=== PATIENT | male | born 1950 | race African-American/Black ===

== ENCOUNTER 2022-07-04 08:29 | Outpatient (CLI) | payer MEDICARE, SELFPAY ==
--- NOTE | ~2022-07-04 | CT_ITS ---
EXAMINATION: CT abdomen wo/w con DATE: 07/04/2022 08:59 INDICATION: Kidney mass. TECHNIQUE: Computed tomography (CT) of the abdomen was performed without and with 100 mL Omnipaque 35 0 intravenous contrast. Automated exposure control and iterative reconstruction technique were employ ed. The dose-length product was 2260.93 mGy-cm. COMPARISON: None. FINDINGS: The visualized portions of the lung bases demonstrate mild atelectasis and scarring. There is a pneumatocele in right lower lobe. No pleural effusion. There is elevation of right hemidiaphragm . The heart size is normal. There are coronary artery calcifications. No pericardial effusion. The li oliver, gallbladder, spleen, pancreas, and adrenal glands are normal. There are cysts in the kidneys mell suring up to 12.0 cm on the left. There are no dilated loops of bowel. The appendix is normal. There are no pathologically enlarged lymph nodes. There is no free intraperitoneal fluid. There is severe t horacic and lumbar spondylosis. There are bridging endplate osteophytes at multiple levels in the tho racic spine, consistent with diffuse idiopathic skeletal hyperostosis (DISH). IMPRESSION: 1. Benign cysts in the kidneys. Reviewed, dictated and finalized at location A. [facility]
[2022-07-04 08:52] LABS: Estimated Glomerular Filt Rate 52
== END 2022-07-04 08:30 | disposition home or self-care (01) ==
LOC: ANHIMG 08:35
PROVIDERS: PCP Internal Medicine; Visit Provider Urology
DX: N28.89 Other specified disorders of kidney and ureter (principal); N28.1 Cyst of kidney, acquired
CPT/HCPCS: 74170; Q9967

== ENCOUNTER 2024-03-31 08:20 | Outpatient (CLI) | payer MEDICARE, SELFPAY ==
[2024-03-31 09:05] LABS: Anion Gap 7 mmol/L (4-12); Blood Urea Nitrogen 27 mg/dL (9-20); Calcium 9.7 mg/dL (8.4-10.2); Carbon Dioxide 30 mmol/L (22-30); Chloride 104 mmol/L (98-107); Estimated Glomerular Filt Rate 52; Glucose 110 mg/dL (65-110); Potassium 4.2 mmol/L (3.4-5.0); Sodium 141 mmol/L (137-145)
== END 2024-03-31 08:21 | disposition home or self-care (01) ==
LOC: ANHSURGERY 08:24
PROVIDERS: Anesthesiology; PCP Internal Medicine; Visit Provider Urology
DX: Z51.81 Encounter for therapeutic drug level monitoring (principal); R97.20 Elevated prostate specific antigen [PSA]; Z79.899 Other long term (current) drug therapy
CPT/HCPCS: 36415; 80048; 87086

== ENCOUNTER 2024-04-08 01:19 | Day surgery (SDC) | payer MEDICARE, SELFPAY ==
[2024-03-24 13:20] VITALS: BMI 40.8
--- NOTE | 2024-03-24 13:50 | PC.NURSE ---
Report to the Outpatient Waiting Room, entrance under the green pavilion located off [facility], at time ___7:30AM____ on date ___04/08/24____. Planned Procedure Time: ___9:30AM .? Time changes happen often and if your time is changed the preop area will call you the afternoon before. - You and your visitor will be asked to self-screen and do not enter if you have any COVID symptoms. Please call surgeon if you need to reschedule. - A mask is optional within the hospital at this time. Patients may have clear liquids (water, carbonated beverages, clear teas, apple juice) until 3 hours prior to surgery with a maximum of 20 ounces. - No food from midnight until time of surgery and no smoking. This includes no chewing gum, candy or mints. Take only the following medications with a SIP of water on the morning of surgery: NONE DO NOT STOP ANY OF YOUR OTHER PRESCRIPTION MEDICATIONS PRIOR TO SURGERY EXCEPT THE FOLLOWING Medications to discontinue per physician ____HOLD ASPIRIN 7 DAYS PRE-OP PER DR CANCHOLA- LAST DOSE-03/31/24. HOLD ALL VITAMINS/SUPPLEMENTS 3 DAYS PREOP PE ANESTHESIA- LAST DOSE 04/04/24. HOLD MOUNJARO 10 DAYS PRE-OP PER ANESTHESIA- LAST DOSE 03/28/24 HOLD THE 04/02/24 DOSE Please no make-up, nail tristanian, hairspray, perfume, deodorant, or body powder the day of surgery.? No jewelry (including any body piercings) or valuables the day of surgery, leave them at home.? Please take a shower or bath the night before, or the morning of, surgery with an antibacterial soap.? Wear comfortable, loose fitting clothing.? - Jewelry must be removed prior to entering the operating room.? Rings and piercings that are not removed may be cut off. - The hospital will not accept responsibility for valuables.? - Please leave all valuables, including medications, at home the day of surgery. If you are going home after surgery, a licensed newspaper delivery driver must drive you home.? - NO public transportation without another adult if you receive anesthesia. - We recommend that an adult stay with you for 24 hours following discharge. - We also recommend that you do not drive, make important decision, drink alcoholic beverages, or take any drugs that were not prescribed by your health care provider for at least 24 hours after your discharge time. Follow any additional instructions given to you from your surgeon. Telephone instructions given to ____PATIENT and asked if any additional questions and then verbalized understanding. Patient advised to call surgeon office or pre surgery nurse liaison [phone] if any additional questions.
--- NOTE | 2024-04-08 07:35 | PM.IMHP ---
H&P: HPI History of Present Illness Date/Time: 04/08/24 07:35 Chief Complaint: elevated psa Narrative: 74 yr old male with elevated psa and abnormal mri. Review of Systems Review of Systems: All systems reviewed & are unremarkable except as noted in HPI and below PMFSH Social History Social History Smoking status: Never smoker Living arrangements: with family Additional living arrangements comments: & [employer] Spiritual care concerns: No Meds Home Medications and Allergies Home Medications ?Medication ?Instructions ?Recorded ?Confirmed ?Type amlodipine 5 mg-benazepril 20 mg 1 cap PO QAM 03/24/24 03/24/24 History capsule aspirin 325 mg capsule 325 mg PO DAILY 03/24/24 03/24/24 History atorvastatin 20 mg tablet 20 mg PO QAM 03/24/24 03/24/24 History cholecalciferol (vitamin D3) 125 125 mcg PO DAILY 03/24/24 03/24/24 History mcg (5,000 unit) capsule ciprofloxacin HCl 500 mg tablet 500 mg PO Q12H 03/24/24 03/24/24 History hydrochlorothiazide 12.5 mg capsule 12.5 mg PO QAM 03/24/24 03/24/24 History multivitamin 1 tablet PO DAILY 03/24/24 03/24/24 History tirzepatide 5 mg/0.5 mL 5 mg subcut WEEKLY 03/24/24 03/24/24 History subcutaneous pen injector (Mounjaro) Allergies Allergy/AdvReac Type Severity Reaction Status Date / Time No Known Allergies Allergy Verified 03/24/24 13:11 Exam Const: General: cooperative, comfortable and no acute distress Resp: Effort & Inspection: normal respiratory effort Cardio: Rate: regular rate Rhythm: regular rhythm Assessment and Plan Assessment and plan (1) Elevated PSA: Code(s): R97.20 - Elevated prostate specific antigen [PSA] Status: Acute Assessment and Plan: Proceed with uronav us and prostate biopsy
--- NOTE | 2024-04-08 07:37 | WPDHPUPDATE1 ---
History and Physical Update Update Date/Time: 04/08/24 07:37 History and Physical has been reviewed, including an updated exam of the patient. There are NO changes in the patient's condition. Risks, benefits, and alternatives have been discussed and questions answered. Patient agrees to proceed with procedure.
[2024-04-08 07:40] VITALS: BP 113/81; PULSE 107; RESP 16; TEMP 37; O2SAT 99
[2024-04-08 07:54] VITALS: BMI 40.7
[2024-04-08] MEDS: LACTATED RINGERS 1,000 ML 30 ML IV CONT (07:55)
--- NOTE | 2024-04-08 09:14 | WPDANESEPPF ---
Anes - Initial Pre Proc Eval Procedure: Operation Date: 04/08/24 09:30 Proposed Procedures p Trans Rectal Fusion Guided Prostate Biopsy - Marcos Polk MD Date/Time: 04/08/24 09:14 Surgeon: Marcos Polk MD Pre Op Diagnosis: Elev PSA Patient Data Age: 74 Gender: M Height: 1.78 m Weight: 128.9 kg Last Vital Signs Temp 37.0 C 04/08/24 07:40 Pulse 107 H 04/08/24 07:40 Resp 16 04/08/24 07:40 BP 113/81 04/08/24 07:40 Pulse Ox 99 04/08/24 07:40 O2 Del Method Room Air 04/08/24 07:40 Allergies Allergy/AdvReac Type Severity Reaction Status Date / Time No Known Allergies Allergy Verified 04/08/24 07:54 Home Medications ?Medication ?Instructions ?Recorded ?Confirmed ?Type amlodipine 5 mg-benazepril 20 mg 1 cap PO QAM 03/24/24 03/24/24 History capsule aspirin 325 mg capsule 325 mg PO DAILY 03/24/24 04/08/24 History atorvastatin 20 mg tablet 20 mg PO QAM 03/24/24 03/24/24 History cholecalciferol (vitamin D3) 125 125 mcg PO DAILY 03/24/24 04/08/24 History mcg (5,000 unit) capsule ciprofloxacin HCl 500 mg tablet 500 mg PO Q12H 03/24/24 03/24/24 History hydrochlorothiazide 12.5 mg capsule 12.5 mg PO QAM 03/24/24 03/24/24 History multivitamin 1 tablet PO DAILY 03/24/24 04/08/24 History tirzepatide 5 mg/0.5 mL 5 mg subcut WEEKLY 03/24/24 04/08/24 History subcutaneous pen injector (Mounjaro) Patient hx anesthesia problems: none Family hx anesthesia problems: none Results Review: All pre-operative results and documents have been reviewed as part of the pre-operative evaluation. [facility] Social History Social History Smoking status: Never smoker Living arrangements: with family Additional living arrangements comments: & [employer] Spiritual care concerns: No Anes - Eval Final PreProcedure Day of Procedure 04/08/24 09:14 Patient weight: morbidly obese Heart: regular rate and rhythm Lungs: clear to auscultation Airway: Mallampati scale class II Neurological: alert and oriented Last oral intake: >/= 8 hours ASA classification: III Emergent: no Anesthetic plan: proceed Anesthesia type and monitoring: general LMA and standard monitoring Results Review: All pre-operative results and documents have been reviewed as part of the pre-operative evaluation. Informed Consent: The patient's anesthetic plan and its attendant risks and benefits were discussed with the patient/family/POA. Questions were solicited and answers provided to the satisfaction of the patient/family/POA.
[2024-04-08] MEDS: ceFAZolin 3 GM/D5W 100 ML 100 ML IVPB (09:34)
--- NOTE | 2024-04-08 10:00 | W.PM.PROC2 ---
Procedure Note - Detailed Date of Procedure 04/08/24 Pre-op Diagnosis Elev PSA Post-op Diagnosis Same Procedure Performed uronav us and prostate biospy Surgeon Marcos Polk MD Anesthesia General Description of Procedure Patient was taken to the operative suite correctly identified. Once anesthesia was obtained was placed in the decubitus position. Transrectal ultrasound probe was inserted. The MRI image was fused to the ultrasound. He has an extremely enlarged prostate. There were 2 regions of interest. Three cores were taken from each region of interest. Twelve standard core biopsies were then taken. Patient tolerated procedure well without any complications taken recovery in stable condition. He is instructed to call for results in a week. This completes dictation. Please send a copy of op note to my office Estimated Blood Loss 0 Drains No Packing No Pathology Yes Complications No immediate complications Condition Stable Disposition PACU
[2024-04-08 10:04] VITALS: BP 108/71; PULSE 96; RESP 20; O2SAT 95
[2024-04-08 10:34] VITALS: BP 126/79; PULSE 77; RESP 16
== END 2024-04-08 10:53 | disposition home or self-care (01) ==
PROVIDERS: PCP Internal Medicine; Visit Provider Urology
PROC: (CPT 55700; principal; 2024-04-08 09:30)
DX: R97.20 Elevated prostate specific antigen [PSA] (principal); E66.01 Morbid (severe) obesity due to excess calories; Z68.41 Body mass index [BMI] 40.0-44.9, adult; Z79.82 Long term (current) use of aspirin; Z79.85 Long-term (current) use of injectable non-insulin antidiabetic drugs
CPT/HCPCS: 76872; 55700; 88342; G0416; J0690; J2003; J2704; J3010; J7120